=== PATIENT | female | born 1950 ===

== ENCOUNTER 2019-10-27 09:51 | Day surgery (SDC) | payer MEDICARE, BC, OTHER ==
[~2019-10-27 09:51] MED LIST: Buffered Lidocaine 1% SYRIN 1 ml INTRADERM ONE
[2019-10-27] MEDS ORDERED: Midazolam 5 mg/5 ml VIAL 1 mg/ml 5 ml VIAL (5 mg) ONE (11:55)
[2019-10-27] MEDS ORDERED: fentaNYL 100 mcg/2 ml 50 MCG/ML VIAL ONE (11:55)
[2019-10-27 13:09] VITALS: BP 132/70
[2019-10-27] MEDS ORDERED: Lidocaine 1% MPF 5 ML VIAL ONE (15:00)
[2019-10-27] MEDS ORDERED: Povidone Iodine 5% OPTH 30 ML BTL ONE (15:00)
[2019-10-27] MEDS ORDERED: Cyclopentolate 1% OPTH.SOL 2 ML BTL ONE (15:00)
[2019-10-27] MEDS ORDERED: Proparacaine 0.5% OPHTH.SOL 15 ML BTL ONE (15:00)
[2019-10-27] MEDS ORDERED: Neomycin/Polymy/Dex OPTH.SUSP MAXITROL 0.1% 5 ML ONE (15:00)
[2019-10-27] MEDS ORDERED: Lidocaine 2% w/ EPI 1:200,000 MPF 20 ML SDV VIAL ONE (15:00)
[2019-10-27] MEDS ORDERED: Phenylephrine 2.5% OPHTH SOL 2 ml BTL ONE (15:00)
[2019-10-27] MEDS ORDERED: Ketorolac 0.5% OPHTH (NF) 0.5 % 5 ML BTL ONE (15:00)
== END 2019-10-27 13:00 | disposition home or self-care (01) ==
LOC: OREAST 09:51
PROVIDERS: ATTEND Specialist
DX: H25.811 Combined forms of age-related cataract, right eye (principal); I10 Essential (primary) hypertension; Z88.0 Allergy status to penicillin; Z88.1 Allergy status to other antibiotic agents; Z85.3 Personal history of malignant neoplasm of breast

== ENCOUNTER 2019-11-03 11:43 | Day surgery (SDC) | payer MEDICARE, BC ==
[2019-11-03] MEDS ORDERED: Midazolam 2 mg/2 ml VIAL 1 mg/ml 2 ml VIAL (2 mg) ONE ×2 (13:03→13:53)
[2019-11-03] MEDS ORDERED: fentaNYL 100 mcg/2 ml 50 MCG/ML VIAL ONE (13:03)
[2019-11-03] MEDS ORDERED: Ketorolac 0.5% OPHTH (NF) 0.5 % 5 ML BTL ONE (13:38)
[2019-11-03] MEDS ORDERED: Phenylephrine 2.5% OPHTH SOL 2 ml BTL ONE (13:38)
[2019-11-03] MEDS ORDERED: Povidone Iodine 5% OPTH 30 ML BTL ONE (13:38)
[2019-11-03] MEDS ORDERED: Cyclopentolate 1% OPTH.SOL 2 ML BTL ONE (13:38)
[2019-11-03] MEDS ORDERED: Lidocaine 1% MPF 5 ML VIAL ONE (13:38)
[2019-11-03] MEDS ORDERED: Neomycin/Polymy/Dex OPTH.SUSP MAXITROL 0.1% 5 ML ONE (13:38)
[2019-11-03] MEDS ORDERED: Lidocaine 2% w/ EPI 1:200,000 MPF 20 ML SDV VIAL ONE (13:38)
[2019-11-03] MEDS ORDERED: Proparacaine 0.5% OPHTH.SOL 15 ML BTL ONE (13:38)
[2019-11-03 14:34] VITALS: BP 151/66
== END 2019-11-03 14:48 | disposition home or self-care (01) ==
LOC: OREAST 11:43
PROVIDERS: ATTEND Specialist
DX: H25.812 Combined forms of age-related cataract, left eye (principal); I10 Essential (primary) hypertension; J45.909 Unspecified asthma, uncomplicated; Z88.0 Allergy status to penicillin; Z88.1 Allergy status to other antibiotic agents; Z85.3 Personal history of malignant neoplasm of breast; Z87.891 Personal history of nicotine dependence